=== PATIENT | male | born 1980 | race Hispanic/Latino ===

== ENCOUNTER 2018-03-08 17:57 | Emergency (ER) | payer OTHER, SELFPAY ==
[~2018-03-08 17:57] MED LIST: ISOVUE-370 76%-LOCM 1 ML ONE
[2018-03-08] MEDS ORDERED: Lorazepam 2 MG/ML VIAL ONE (18:04)
[2018-03-08 18:34] LABS: #Basophils 0.1 thou/uL (0.0-0.2); #Eosinphils 0.4 thou/uL (0.0-0.7); #Monocytes 0.9 thou/uL (0.11-0.59); #Neutrophils 7.2 thou/uL (1.40-6.50); %Basophils 0.7 % (0.0-1.0); %Eosinophils 3.3 % (0.0-10.0); %Lymphocytes 25.9 % (21.0-51.0); %Monocytes 7.7 % (0.0-10.0); %Neutrophils 62.3 % (42.0-75.0); Hemoglobin 17.1 g/dL (14.0-18.0); Mean Corpuscular HGB CONC 34.7 g/dL (32.0-36.0); Mean Corpuscular Volume 95.1 fl (80.0-94.0); Platelet Count 216 thou/uL (130-400); RBC Distribution Width 12.2 % (11.5-14.5); Red Blood Cell (RBC) Count 5.19 mill/uL (4.70-6.10); White Blood Cell (WBC) Count 11.5 thou/uL (4.8-10.8)
[2018-03-08 18:43] LABS: Acetaminophen Less than 6.0 mcg/mL (10.0-30.0); Alcohol Less than 10 mg/dL (Less than 10); Salicylate Less than 8.0 mg/dL (15.0-30.0)
[2018-03-08 18:47] LABS: ALT (SGPT) 43 U/L (8-55); AST (SGOT) 31 U/L (5-34); Albumin 4.1 g/dL (3.5-5.0); Alkaline Phosphatase 85 U/L (40-150); Anion Gap 14 mmol/L (10-20); BUN (Urea Nitrogen) 13 mg/dL (8.9-20.6); Calc. Creatinine Clearance 0 mL/min (70-130); Calcium 8.9 mg/dL (7.8-10.44); Carbon Dioxide 20 mmol/L (22-29); Chloride 109 mmol/L (98-107); Estimated GFR-MDRD 83; Globulin 3.1 g/dL (2.4-3.5); Glucose 113 mg/dL (70-105); Potassium 4.3 mmol/L (3.5-5.1); Protein, Total 7.2 g/dL (6.0-8.3); Sodium 139 mmol/L (136-145)
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
[2018-03-08] MEDS ORDERED: Ketorolac Tromethamine 30 MG/ML VIAL ONE (19:32)
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
[2018-03-08 20:10] LABS: CKMB 0.5 ng/mL (0-6.6); Troponin I Less than 0.010 ng/mL (< 0.028)
[2018-03-08 21:04] LABS: Bilirubin Negative (Negative); Blood, Urine Negative (Negative); Clarity CLEAR (Clear); Glucose, Urine (Dipstick) Negative (Negative); Leukocyte Negative (Negative); Nitrite Negative (Negative); Protein, Urine (Dipstick) Negative (Neg-Trace); Specific Gravity, Urine 1.024 (1.002-1.036)
== END 2018-03-08 22:44 | disposition home or self-care (01) ==
LOC: ERS 17:57
DX: T07.XXXA Unspecified multiple injuries, initial encounter (principal); R16.0 Hepatomegaly, not elsewhere classified; G40.909 Epilepsy, unspecified, not intractable, without status epilepticus; F31.9 Bipolar disorder, unspecified; V49.9XXA Car occupant (driver) (passenger) injured in unspecified traffic accident, initial encounter
CPT/HCPCS: 36415; 36416; 70450; 71045; 71260; 72125; 74177; 80053; 80307; 81003; 82553; 84484; 85025; 86850; 86900; 86901; 93005; 96361; 96374; 96375; G0390; J1885; J2060